=== PATIENT | female | born 1950 | race Caucasian/White ===

== ENCOUNTER 2024-09-07 19:19 | Emergency (ER) | payer MEDICARE ==
[~2024-09-07] VITALS: Ht 167.6 cm; Wt 104.0 kg
[2024-09-07 22:16] VITALS: BP 133/78
== END 2024-09-07 22:16 | disposition home or self-care (01) ==
LOC: ED 19:19
DX: S93.402A Sprain of unspecified ligament of left ankle, initial encounter (principal); I10 Essential (primary) hypertension; E78.5 Hyperlipidemia, unspecified; W01.0XXA Fall on same level from slipping, tripping and stumbling without subsequent striking against object, initial encounter; Y92.007 Garden or yard of unspecified non-institutional (private) residence as the place of occurrence of the external cause; Z96.651 Presence of right artificial knee joint